=== PATIENT | female | born 2000 | race Two or more races ===

== ENCOUNTER 2019-02-04 14:42 | Emergency (ER) | payer MEDICAID, OTHER ==
[~2019-02-04] VITALS: Ht 154.9 cm; Wt 111.6 kg
[2019-02-04 15:10] VITALS: BP 150/87
[2019-02-04 16:13] LABS: Eosinophils # (auto) 0.1 uL; Hemoglobin 13.8 g/dL (12.2-16.2); Monocytes # (auto) 0.7 uL; Monocytes % (auto) 7.9 % (0.0-12.0)
[2019-02-04 16:17] LABS: Basophils # (auto) 0.1 uL; Basophils % (auto) 0.6 % (0.0-2.0); Eosinophils % (auto) 0.7 % (0.0-7.0); Hematocrit 42.1 % (36.0-46.0); Lymphocytes % (auto) 31.9 % (10.0-50.0); Mean Corpuscular Hemoglobin 26.1 pg (28.0-32.0); Mean Corpuscular Hgb Conc. 32.7 g/dL (32.0-36.0); Mean Corpuscular Volume 79.8 fL (80.0-100.0); Neutrophils # (auto) 5.5 uL; Neutrophils % (auto) 58.9 % (37.0-80.0); Platelet Count (auto) 239 10^3/uL (140-450); Red Blood Cells 5.27 10^6/uL (4.0-5.20); Red Cell Distribution Width 15.9 % (11.8-14.3); White Blood Cell 9.3 10^3/uL (4.4-10.8)
[2019-02-04 17:00] LABS: Urine Bacteria FEW /hpf (None Seen); Urine Blood 3+ /uL (Negative); Urine Specific Gravity 1.002 (1.001-1.035); Urine WBC 1 /hpf (0 - 5)
== END 2019-02-04 18:50 | disposition home or self-care (01) ==
LOC: ER 14:55
DX: N94.6 Dysmenorrhea, unspecified (principal)
CPT/HCPCS: 36415; 81001; 84702; 85025